=== PATIENT | male | born 1935 | race Hispanic/Latino ===

== ENCOUNTER 2021-07-11 11:36 | Day surgery (SDC) | payer OTHER ==
[2021-07-03 12:08] LABS: Absolute Lymphocytes (CBC) 1.2 K/uL (0.7-4.9); Basophils % 0.9 % (0-1.3); Hematocrit 37.5 % (39.6-49.0); MPV 8.3 fL (7.6-11.3); RBC Red Blood Cell Count 4.18 M/uL (4.33-5.43)
[2021-07-03 12:18] LABS: Protime INR 1.08
[2021-07-03 12:29] LABS: Potassium 3.9 mmol/L (3.5-5.1)
--- NOTE | 2021-07-03 12:39 | RAD REPORT ---
EXAM DESCRIPTION: Sancho Gonzalez (2 Views)07/03/2021 12:27 pm CLINICAL HISTORY: Preop for bladder surgery COMPARISON: 2016 FINDINGS: The lungs appear clear of acute infiltrate. The heart is borderline enlarged. Calcificati on left hemidiaphragm present. IMPRESSION: No acute abnormalities displayed
--- NOTE | 2021-07-04 16:16 | EKG ---
Test Date: 2021-07-03 Test Time: 11:15:33 Judo Instructor: TG MEASUREMENT RESULTS: Intervals: Rate: 54 ME: 196 QRSD: 84 QT: 426 QTc: 403 [place]: P: 53 ME: 196 QRS: -7 T: 42 INTERPRETIVE STATEMENTS: Sinus bradycardia Possible Anterior infarct, age undetermined Abnormal ECG Compared to ECG 08/22/2016 09:56:40 Myocardial infarct finding now present Electronically Signed On 07-04-21 16:12:00 CDT by Edgar Wright
[2021-07-11] MEDS ORDERED: CEFAZOLIN/SWI 1gm 1 GM/10 ML SYR ONE ×2 (12:48→13:24)
[2021-07-11] MEDS ORDERED: Ringers Lactate 1,000 ML IV ONE (12:48)
[2021-07-11] MEDS ORDERED: FENTANYL CITR 100 MCG/2 ML ONE (14:10)
[2021-07-11] MEDS ORDERED: propofoL 200 MG/20 ML VIAL IV ONE (14:10)
[2021-07-11] MEDS ORDERED: ONDANSETRON 4 MG/2 ML VIAL ONE (14:11)
[2021-07-11] MEDS ORDERED: GLYCOPYRROLATE 0.2 MG/ML SYR ONE (15:37)
[2021-07-11 16:52] VITALS: BP 167/84; TEMP 96.8; O2SAT 99
--- NOTE | 2021-07-11 17:10 | OP ---
Surgeon: SIMONE LIPSCOMB Preoperative Diagnoses: 1.Meatal stenosis. 2.History of urethral stricture disease. Postoperative Diagnoses: 1.Meatal stenosis. 2.History of urethral stricture disease. 3.History of transurethral resection of the prostate evident. Procedures: 1.Cystourethroscopy. 2.Apple catheter placement over a wire. Indication For Procedure: Mr. Barrios is an 86-year-old gentleman with history of significant bothers ome lower urinary tract symptoms of severe overactivity refractory to medical therapy. He was sent t o me for cystoscopic evaluation, but that was unable to be completed as an outpatient. There was eyal dence of a subcoronal urethral pit that was scarred and blind-ending, and it was my thought that it w ould require dilation in order to gain access into the urethra. 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 Procedure In Detail: The patient was consented in the preoperative holding area before being transfe rred to operative suite where general anesthesia was induced. He was given Ancef 2 g IV antimicrobia l prophylaxis and pneumo boots were provided for DVT prophylaxis. His genitalia were prepped using H ibiclens and draped in standard fashion. After he was placed in the lithotomy position, he was padde d and secured to the table appropriately. The case was begun using a 22-Icelandic rigid cystoscope to i dentify the subcoronal hypospadiac opening and with the rigid cystoscope to gain access via that open ing into his distal urethra. I was then able to survey the urethra beyond an area of minimal strictu red narrowing in the bulbar urethra before entering the bladder. Via the prostatic urethra, there wa s evidence of prior TUR defect, but there was still significant anterior lobar overhang that might li guy be obstructive given its obscuring approximately 80%-90% of the lumen despite prior resection of the lateral and median lobar tissue. I was then able to enter the bladder, and I visualized in its entirety. The ureteral orifices were orthotopic in location and effluxing clear urine bilaterally. I surveyed the bladder in its entirety, and there were no mucosal lesions, foreign bodies or stones t hroughout. The bladder was not significantly trabeculated and there were no diverticula. As a resul t, I placed a wire via the cystoscope into the bladder and coiled it there. Over the wire, I then re moved the cystoscope leaving the wire in place. I then passed a 20-[place]ic [place] tip Apple catheter into his bladder with ease. Approximately 15 mL of sterile water was placed in the balloon, and his bladder was decompressed. The catheter was connected to a leg bag and he was taken out of the litho michelle position. He was then awakened from general anesthesia before being transferred to a stretcher and then to the recovery room in good condition. Complications: None. Discharge Disposition: Given his lower urinary symptoms refractory to anticholinergic therapy, if du al anticholinergic/antimuscarinic therapy with Myrbetriq as well as a traditional anticholinergic has been tried, the patient either retains a significant quantity of urine or still has significant freq uency, urgency, lower urinary symptoms, a urodynamics evaluation would be in order. Since cystoscopi bruce observed significant anterior lobar overhang is present, there is a potential for obstruction f rom that, which may benefit from further transurethral resection procedure. If no evidence of obstru ction on urodynamics, then second-line therapies for his overactive bladder is in order. Furthermore , given his complaint of scrotal/testicular pain, I have left a urethral Apple catheter in place toda y. That catheter may be removed on , but in the meantime, I have asked the patient to assess for whether his pain does persist. If it does not, it is likely his pain is due to reflux of steril e urine due to obstructive voiding patterns. This again may be managed if obstruction is observed on urodynamics. KEMAR/URVASHI Voice ID: [id number] Report ID: [id number]
== END 2021-07-11 17:45 | disposition home or self-care (01) ==
LOC: OR 11:36
PROVIDERS: ATTEND Urology
PROC: 0T9B8ZZ Drainage of Bladder, Via Natural or Artificial Opening Endoscopic (ICD-10-PCS; principal; 2021-07-11 13:15)
DX: N35.911 Unspecified urethral stricture, male, meatal (principal); Z20.822 Contact with and (suspected) exposure to COVID-19
CPT/HCPCS: 93005; 87088; 85025; 87086; 80048; 36415; 85610; 71046; 51702; U0003; J2704; J3010; J0690 ×2; J7120; J2405

== ENCOUNTER 2021-10-31 11:02 | Day surgery (SDC) | payer OTHER ==
[2021-10-25 15:41] LABS: Absolute Lymphocytes (CBC) 1.4 K/uL (0.7-4.9); Hematocrit 37.2 % (39.6-49.0); MPV 8.2 fL (7.6-11.3); RBC Red Blood Cell Count 4.18 M/uL (4.33-5.43)
[2021-10-25 15:43] LABS: Protime INR 1.03
[2021-10-25 15:51] LABS: Potassium 4.3 mmol/L (3.5-5.1)
[~2021-10-31 11:02] MED LIST: AMPICILLIN SODIUM 2 GM in NA CHLORIDE 0.9% 100 ML IVPB ONE; Gentamicin Inj 160 MG in NA CHLORIDE 0.9% 100 ML IVPB ONE
[2021-10-31] MEDS ORDERED: GLYCOPYRROLATE 0.2 MG/ML SYR IV ONE (11:03)
[2021-10-31] MEDS ORDERED: Ringers Lactate 1,000 ML IV ONE (11:25)
[2021-10-31] MEDS ORDERED: FENTANYL CITR 100 MCG/2 ML ONE (13:06)
[2021-10-31] MEDS ORDERED: LIDOCAINE 1% MPF 5 ML VIAL ONE (13:06)
[2021-10-31] MEDS ORDERED: propofoL 200 MG/20 ML VIAL IV ONE (13:07)
[2021-10-31] MEDS ORDERED: ONDANSETRON 4 MG/2 ML VIAL ONE (13:09)
[2021-10-31] MEDS ORDERED: AMPICILLIN SODIUM 2 GM in NA CHLORIDE 0.9% 100 ML IVPB ONE (13:30)
[2021-10-31] MEDS ORDERED: Gentamicin Inj 160 MG in NA CHLORIDE 0.9% 100 ML IVPB ONE (13:30)
[2021-10-31] MEDS ORDERED: HYDRALAZINE HCL 20 MG/ML VIAL ONE (14:29)
[2021-10-31] MEDS ORDERED: OPIUM/BELLADONNA SUPPOS (30-16.2 MG) PR ONE ×2 (14:37→14:45)
[2021-10-31] MEDS ORDERED: PHENAZOPYRIDINE 100MG TAB PO ONE ×2 (14:37→15:31)
[2021-10-31] MEDS ORDERED: CODEINE 30MG/APAP 300MG TAB PO PRN (14:37)
[2021-10-31 15:27] VITALS: O2SAT 96
[2021-10-31] MEDS ORDERED: CODEINE 30MG/APAP 300MG TAB ONE (15:31)
[2021-10-31 16:29] VITALS: TEMP 97.5
[2021-10-31 17:11] VITALS: BP 141/84
--- NOTE | 2021-11-01 01:01 | OP ---
Surgeon: SIMONE LIPSCOMB Preoperative Diagnoses: 1.Benign prostatic hypertrophy with obstructive lower urinary tract symptoms. 2.Poor/aberrant bladder compliance. 3.Weak detrusor. Postoperative Diagnoses: 1.Benign prostatic hypertrophy with obstructive lower urinary tract symptoms. 2.Poor/aberrant bladder compliance. 3.Weak detrusor. Principle Procedure: Bipolar transurethral resection of the prostate. Indication For Procedure: Mr. Oliva presented to the [facility]rology [facility] with bothersome obstr uctive lower urinary symptoms. He had previously undergone a transurethral resection of the prostate , but yet he still had obstructive symptoms with incomplete bladder emptying. He underwent urodynami c evaluation, which revealed the presence of diminished bladder compliance associated with a weak or poorly contractile detrusor. As a result, to improve his symptoms, which did include incontinence, I suggested we would need to improve his ability to empty his bladder by removing the obstruction, gill longo was observed cystoscopically as significant anterior lobar overhang literally occluding the urethr al lumen at the bladder neck despite a prior TURP, where the median lobe had been resected and largel y the lateral lobes as well. I explained that this may allow him to void easier into completion give n his weak detrusor, but it would not correct the aberrant compliance. As a result, I counseled them that there was a potential after removal of the residual obstructing anterior lobar overhang, he may have a greater degree of incontinence due to the aberrant bladder compliance. I explained that afte r relieving the obstruction and achieving more complete emptying, we would then maximize medical ther apy to manage his aberrant detrusor compliance. This was reminded to the patient in the preoperative holding area because I wanted him to be clear about the potential need for pad use after the operati on. Procedure In Detail: The patient was consented in the preoperative holding area before being transfe rred to the operative suite, where general anesthesia was induced. He was given ampicillin and genta micin 160 mg IV antimicrobial prophylaxis and pneumo boots were provided for DVT prophylaxis. He was placed in the lithotomy position, padded and secured to the table appropriately. His genitalia were prepped using Hibiclens and draped in standard fashion. The case was begun using urethral sounds to dilate the urethral meatus, which was hypospadiac subcoronal in location. This was dilated to 30-Fr ench, and then I used the visual obturator and the 26-Swiss resectoscope to traverse the urethra and into the bladder with ease. The bladder was surveyed in its entirety, and there were no mucosal les ions, foreign bodies, or stones noted throughout. As previously described, there was significant ant erior lobar overhang, which literally was occluding the urethral lumen at the bladder neck. The post erior component of the prostatic fossa had largely been resected, though there was some mild contract ure of the bladder neck at that location. I began by incising and removing the tissue causing the sl ight contracture at the bladder neck inferiorly, removing any excess adenoma down to the level of the verumontanum. The verumontanum appeared to be partially resected or somewhat scarred from the prior procedure, but was yet visible. I then continued the resection this time around anteriorly at the l evel of the bladder neck and took this again to just proximal to the border of the verumontanum. Onc e adequate resection had taken place, I then decompressed his bladder and removed all prostatic chips . With the bladder decompressed, I then reassessed the anterior lobar tissue, and there was slight a dditional tissue, which could benefit from resection. This was done, and the prostatic fossa was wid luis miguel patent. As a result, I then fulgurated the entirety of the fossa where any bleeding vessels were noted, and once completely hemostatic with the bladder decompressed and no inflow of fluid, the case was completed. I then removed any additional prostate chips and then left the bladder full before p lacing a 22-Swiss 3-way Apple catheter with ease. 30 cc of sterile water was placed in the balloon and the catheter was placed to moderate traction. The patient was then taken out of the lithotomy po sition, awakened from general anesthesia, transferred to a stretcher, and then transferred to the rec overy room in good condition. The catheter was placed to slow drip CBI with normal saline and the ef flux was completely clear. Complications: None. Discharge Disposition: He should follow up in the Urology Clinic in 3-5 days for urethral catheter r emoval and voiding trial. He will be discharged with a prescription for an antimicrobial to be taken at least for 24 hours after the catheter is removed. KEMAR/URVASHI Voice ID: [id number] Report ID: [id number]
== END 2021-10-31 17:59 | disposition home or self-care (01) ==
LOC: OR 11:02
PROVIDERS: ATTEND Urology
PROC: 0VT08ZZ Resection of Prostate, Via Natural or Artificial Opening Endoscopic (ICD-10-PCS; principal; 2021-10-31 12:30)
DX: N40.1 Benign prostatic hyperplasia with lower urinary tract symptoms (principal); N31.8 Other neuromuscular dysfunction of bladder; Z20.822 Contact with and (suspected) exposure to COVID-19
CPT/HCPCS: 87088; 85025; 87086; 80048; 36415; 85610; 88305; 52630; U0003; J0360; J2704; J1580; J3010; J7120; J2405; J0290